=== PATIENT | male | born 1985 | race African-American/Black ===

== ENCOUNTER 2017-04-20 08:43 | Emergency (ER) | payer MEDICAID ==
[~2017-04-20] VITALS: Ht 195.6 cm; Wt 73.0 kg
[2017-04-20] MEDS ORDERED: ONDANSETRON HCL 4MG/2ML VIAL IV STA (08:57)
[2017-04-20] MEDS ORDERED: MORPHINE SULFATE 4 MG/ML CPJ (NOT FOR IM USE) IV STA (08:57)
[2017-04-20] MEDS ORDERED: SODIUM CHLORIDE 0.9% 1,000 ML IV ONE (08:57)
[2017-04-20 09:19] LABS: BASOPHILS % 1.2 % (0.0-2.0); EOSINOPHILS % 4.6 % (0.0-5.0); HEMATOCRIT. 40.8 % (42.0-52.0); HEMOGLOBIN. 13.9 g/dL (14.0-18.0); LYMPHOCYTES % 42.7 % (20.0-50.0); MEAN CORPUSCULAR VOLUME 90.9 fL (80.0-94.0); MEAN PLATELET VOLUME 8.2 fl (7.4-10.4); MONOCYTES % 7.6 % (2.0-8.0); NEUTROPHILS % 43.9 % (40.0-76.0); PLATELET 149 x1000/uL (130-400); RED BLOOD CELL COUNT 4.49 mill/uL (4.7-6.1); RED CELL DISTRIBUTION WIDTH 13.3 % (11.6-14.6)
[2017-04-20 09:27] LABS: PROTHROMBIN TIME 10.8 sec
[2017-04-20 09:32] LABS: CARBON DIOXIDE 29 mEq/L (21-32); CHLORIDE 106 mEq/L (98-107)
[2017-04-20 09:36] LABS: TROPONIN I < 0.02 ng/mL (0.00-0.04)
[2017-04-20 09:48] VITALS: BP 126/62
[2017-04-20] MEDS ORDERED: LIDOCAINE HCL 1% 20ML VIAL (Pyxis) INJ INFIL ONE (11:15)
[2017-04-20] MEDS ORDERED: CEFTRIAXONE SODIUM 250 MG/VIAL IM ONE (11:15)
[2017-04-20] MEDS ORDERED: IOHEXOL-300 100 ML BOTTLE ONE (13:28)
[2017-04-20] MEDS ORDERED: SODIUM CHLORIDE 0.9% 10ML VIAL ONE (13:28)
== END 2017-04-20 11:42 | disposition home or self-care (01) ==
LOC: ER 08:54
DX: N41.0 Acute prostatitis (principal); F17.210 Nicotine dependence, cigarettes, uncomplicated; F12.10 Cannabis abuse, uncomplicated
CPT/HCPCS: 36415; 71010; 74177; 80053; 83690; 84484; 85025; 85610; 93005; 96361; 96374; 96375; 99285; A4216; J0696; J2270; J2405; J3490; J7030; Q9967; Z7610

== ENCOUNTER 2017-08-06 22:09 | Emergency (ER) | payer MEDICAID ==
[~2017-08-06] VITALS: Ht 195.6 cm; Wt 78.0 kg
[2017-08-07 03:09] VITALS: BP 123/88
== END 2017-08-07 04:30 | disposition left against medical advice (07) ==
LOC: ER 22:40
DX: M79.89 Other specified soft tissue disorders (principal); M79.644 Pain in right finger(s)
CPT/HCPCS: 99281

== ENCOUNTER 2018-08-09 14:10 | Emergency (ER) | payer MEDICAID ==
[~2018-08-09] VITALS: Ht 195.6 cm; Wt 69.4 kg
[2018-08-09] MEDS ORDERED: IBUPROFEN 600MG TABLET PO ONE (20:00)
[2018-08-09 20:39] VITALS: BP 127/88
== END 2018-08-09 20:52 | disposition home or self-care (01) ==
LOC: ER 14:10
DX: S62.336A Displaced fracture of neck of fifth metacarpal bone, right hand, initial encounter for closed fracture (principal); F12.10 Cannabis abuse, uncomplicated; X58.XXXA Exposure to other specified factors, initial encounter; Y93.89 Activity, other specified; Y92.89 Other specified places as the place of occurrence of the external cause; Y99.8 Other external cause status
CPT/HCPCS: 29125; 73130; 99284